=== PATIENT | male | born 1940 | race Caucasian/White ===

== ENCOUNTER 2020-02-05 17:58 | Inpatient (IN) ==
[2020-02-05 18:28] VITALS: BMI 30.4
[2020-02-05 18:29] LABS: ABG BASE EXCESS 0.1 mmol/L (-2.0-2.0); ABG HCO3 23.6 mmol/L (22-26)
[2020-02-05 18:31] LABS: ABG ALLEN TEST POS
[2020-02-05 19:29] LABS: BASOPHILS % (AUTO) 0 % (0.2-1.0); HEMATOCRIT 36.6 % (42.0-54.0); HEMOGLOBIN 12.3 g/dL (13.5-18.0); LYMPHOCYTES # (AUTO) 0.4 X10^3/uL (1.3-2.9); LYMPHOCYTES % (AUTO) 6.6 % (21.0-51.0); MEAN CORPUSCULAR HEMOGLOBIN 30.6 pg (27.0-34.0); MEAN CORPUSCULAR HGB CONC 33.5 g/dL (33.0-35.0); MEAN CORPUSCULAR VOLUME 91.4 fL (80.0-100.0); MEAN PLATELET VOLUME 8.3 fL (7.4-11.0); MONOCYTES # (AUTO) 0.2 x10^3/uL (0.3-0.8); MONOCYTES % (AUTO) 3.7 % (0.0-13.0); NEUTROPHILS # (AUTO) 5.6 x10^3/uL (2.2-4.8); NEUTROPHILS % (AUTO) 89.7 % (42.0-75.0); PLATELET COUNT 150 X10^3/uL (150.0-450.0); RED BLOOD COUNT 4.01 X10^6/uL (4.7-6.0); RED CELL DISTRIBUTION WIDTH 13.8 % (11.6-16.5); WHITE BLOOD COUNT 6.3 X10^3/uL (3.6-10.0)
[2020-02-05 19:38] LABS: ALANINE AMINOTRANSFERASE 38 Units/L (12-78); ALBUMIN 2.8 g/dL (3.4-5.0); ALKALINE PHOSPHATASE 54 Units/L (46-116); ASPARTATE AMINO TRANSFERASE 48 Units/L (15-37); BLOOD UREA NITROGEN 23 mg/dL (7-18); CALCIUM 8.4 mg/dL (8.5-10.1); CARBON DIOXIDE 24.7 mmol/L (21-32); CHLORIDE 103 mmol/L (98-107); COR CA(FOR HYPOALB) 9.4 mg/dL (8.5-10.1); COR NA(FOR HYPERGLY) 138 mmol/L (136-145); CREATININE 1.36 mg/dL (0.70-1.30); SODIUM 137 mmol/L (136-145); TOTAL PROTEIN 6.6 g/dL (6.4-8.2); eGFR NON BLACK RACES 53 (>60)
--- NOTE | 2020-02-05 19:56 | RAD ---
HISTORYCOVID, SOB, WEAKNESSSTUDYCHEST, 1 VIEWCOMPARISONNoneFINDINGSThe trachea is midline. The cardiac silhouette is unremarkable. Diffuse airspace disease is demonstrated bilaterally with areas of consolidation noted within the right upper and lower lobes and left perihilar region. The aortic knob is partially calcified.IMPRESSIONExtensive bilateral airspace disease as discussed above.Electronically signed by: JONA GRIGGS (Feb 05, 2020 19:55:32)
--- NOTE | 2020-02-05 20:37 | DR.DIZZY ---
HPI Time seen Time Seen by Provider: 02/05/20 18:56 PCP Primary Care Physician: GROVER Complaint Chief Complaint:: PT TESTED POSITIVE FOR COVID- 19 ON Friday01/31/20, PT WITH WEAKNESS AND DECLINE IN AMBULATING. SHORT OF BREATHE. OXYGEN SAT 72%. PT TOOK TO TRAUMA ROOM, ASSISTED PT TO BED. CALLED FOR RESPIRATORY TO COME GET ABG ON ROOM AIR. Self Treatment fo Chief Complaint: WENT TO PRIMARY CARE DOCTOR ON FRIDAY, WITH NO IMPROVEMENT. COVID-19 Coronavirus risk:travel/contact w/high risk person: Yes Has patient experienced Coronavirus symptoms: Yes Coronavirus symptoms experienced: Fever, Coughing and Shortness of Breath Source History Provided: Patient and Family Member Mode of Arrival Mode of Arrival: Wheelchair Timing Onset of Chief Complaint: 01/31/20 Context Stroke Symptoms: None PMH PMH Past Medical History: Yes Past Medical History: Hypertension Past Surgical History: No Family History History of Family Medical Conditions: No Social History Does any household member use tobacco: No Alcohol Use: None Do you use any recreational Drugs:: No Lives With: Alone and Family Lives Where: Home Travel Risk Coronavirus risk:travel/contact w/high risk person: Yes Has patient experienced Coronavirus symptoms: Yes Coronavirus symptoms experienced: Fever, Coughing and Shortness of Breath Infectious screening In the last 2 months have you had wt loss of >10#?: NO Have you had fever, night sweats or hemotysis?: Yes Have you traveled outside the country in the last 6 months?: No Isolation: Standard ROS Review of Systems Constitutional: Fever and Fatigue Eyes: No Symptoms Reported ENTM: No Symptoms Reported Respiratoy: Dry Cough and Short of Breath Cardiovascular: No Symptoms Reported Gastrointestinal/Abdominal: No Symptoms Reported Neurological: No Symptoms Reported Musculoskeletal: No Symptoms Reported Integumentary: No Symptoms Reported Hematologic/Lymphatic: No Symptoms Reported Endocrine: No Symptoms Reported Psychiatric: No Symptoms Reported PE Vital Signs Vitals: Temperature 99 F Pulse Rate 83 Respiratory Rate 20 Blood Pressure 195/79 O2 Sat by Pulse Oximetry 72 General Limitations: No Limitations General Appearance: Anxious and In Distress Head Head Exam: Normal Inspection, Atraumatic and Normocephalic Eyes Eye exam: Normal Appearance, PERRL and EOMI ENT ENT Exam: Normal Exam and Mucous Membranes Moist Respiratory Respiratory Exam: Bilateral: Rhonchi Cardiovascular Cardiovascular Exam: +S1 and +S2 Abdominal Exam Abdominal Exam: Normal Bowel Sounds and Soft Extremeties Extremities Exam: Normal Inspection Neurologic Neurological Exam: Alert and Oriented X3 Psychiatric Psychiatric Exam: Anxious Skin Skin Exam: Warm MDM Differential Diagnosis Differential Diagnosis Comment: covid 19 pos,hypoxia,shiortness of breath abnormal lung sounds COURSE Consultation Consultation Comments: will admit spoke with Dr Preston COONEY Labs Reviewed Laboratory Results Reviewed?: Yes Result Diagrams: 02/05/20 19:10 02/05/20 19:10 Laboratory: WBC 6.3 X10^3/uL (3.6-10.0) 02/05/20 19:10 RBC 4.01 X10^6/uL (4.7-6.0) L 02/05/20 19:10 Hgb 12.3 g/dL (13.5-18.0) L 02/05/20 19:10 Hct 36.6 % (42.0-54.0) L 02/05/20 19:10 MCV 91.4 fL (80.0-100.0) 02/05/20 19:10 MCH 30.6 pg (27.0-34.0) 02/05/20 19:10 MCHC 33.5 g/dL (33.0-35.0) 02/05/20 19:10 RDW 13.8 % (11.6-16.5) 02/05/20 19:10 Plt Count 150 X10^3/uL (150.0-450.0) 02/05/20 19:10 MPV 8.3 fL (7.4-11.0) 02/05/20 19:10 Neut % (Auto) 89.7 % (42.0-75.0) H 02/05/20 19:10 Lymph % (Auto) 6.6 % (21.0-51.0) L 02/05/20 19:10 Vill[place]ba % (Auto) 3.7 % (0.0-13.0) 02/05/20 19:10 Eos % (Auto) 0.0 % (0.9-2.9) L 02/05/20 19:10 Baso % (Auto) 0 % (0.2-1.0) L 02/05/20 19:10 Neut # (Auto) 5.6 x10^3/uL (2.2-4.8) H 02/05/20 19:10 Lymph # (Auto) 0.4 X10^3/uL (1.3-2.9) L 02/05/20 19:10 [place]ba # (Auto) 0.2 x10^3/uL (0.3-0.8) L 02/05/20 19:10 Eos # (Auto) 0.0 x10^3/uL (0.0-0.2) 02/05/20 19:10 Baso # (Auto) 0.0 X10^3/uL (0.0-0.1) 02/05/20 19:10 Absolute Nucleated RBC 0.0 /100WBC 02/05/20 19:10 Sample Site Rr 02/05/20 18:24 ABG pH 7.450 (7.35-7.45) 02/05/20 18:24 ABG pCO2 34.0 mmHg (35.0-45.0) L 02/05/20 18:24 ABG pO2 40.0 mmHg (80.0-100.0) L* 02/05/20 18:24 ABG HCO3 23.6 mmol/L (22-26) 02/05/20 18:24 ABG O2 Saturation 78.0 % (90-100) L* 02/05/20 18:24 ABG Base Excess 0.1 mmol/L (-2.0-2.0) 02/05/20 18:24 Ezra Test Pos 02/05/20 18:24 A-a Gradient 67.0 mmHg 02/05/20 18:24 FiO2 21.0 02/05/20 18:24 Blood Gas Comments Oriana well gmb 02/05/20 18:24 Sodium 137 mmol/L (136-145) 02/05/20 19:10 Corrected Sodium 138 mmol/L (136-145) 02/05/20 19:10 Potassium 4.1 mmol/L (3.5-5.1) 02/05/20 19:10 Chloride 103 mmol/L (98-107) 02/05/20 19:10 Carbon Dioxide 24.7 mmol/L (21-32) 02/05/20 19:10 BUN 23 mg/dL (7-18) H 02/05/20 19:10 Creatinine 1.36 mg/dL (0.70-1.30) H 02/05/20 19:10 Est GFR (MDRD) Af Amer > 60 (>60) 02/05/20 19:10 Est GFR (MDRD) Non-Af 53 (>60) L 02/05/20 19:10 Glucose 134 mg/dL (65-99) H 02/05/20 19:10 Calcium 8.4 mg/dL (8.5-10.1) L 02/05/20 19:10 Corrected Calcium 9.4 mg/dL (8.5-10.1) 02/05/20 19:10 Ferritin 1439 ng/mL (26-388) H 02/05/20 19:10 Total Bilirubin 0.50 mg/dL (0.2-1.0) 02/05/20 19:10 AST 48 Units/L (15-37) H 02/05/20 19:10 ALT 38 Units/L (12-78) 02/05/20 19:10 Alkaline Phosphatase 54 Units/L (46-116) 02/05/20 19:10 C-Reactive Protein 113.90 mg/L (0-3.0) H 02/05/20 19:10 Total Protein 6.6 g/dL (6.4-8.2) 02/05/20 19:10 Albumin 2.8 g/dL (3.4-5.0) L 02/05/20 19:10 Globulin 3.8 g/dL (2.5-4.5) 02/05/20 19:10 Albumin/Globulin Ratio 0.7 Ratio (1.1-2.1) L 02/05/20 19:10 Other Results Comments: CXR bilateral changes suggestive of viral pneumonia Opioid Opioid Risk Tool Age (Estuardo box if 16-45): No Total: 0 Total Score Risk Category: Low Risk Copyright: Mansoor SCHMIDT predicting aberrant behaviors Instructions Forms: Precautions for COVID19 Patient Portal Social Distancing
[2020-02-05] MEDS ORDERED: REMDESIVIR (INVESTIGATIONAL DRUG GS-5734) 200 MG in NS 250 ML IV 250 ML IV SCH (20:52)
[2020-02-05] MEDS ORDERED: VENTOLIN or PROAIR HFA IN SCH (21:00)
[2020-02-05] MEDS ORDERED: REMDESIVIR (INVESTIGATIONAL DRUG GS-5734) IV ONE (23:16)
[2020-02-05] MEDS ORDERED: NS 250 ML IV 250 ML IV ONE (23:18)
[2020-02-05] MEDS: NS 1000 ML 1,000 ML IV SCH (23:30)
[2020-02-05] MEDS: SOLU-Medrol 40 MG VIAL IVP SCH (23:30)
[2020-02-05] MEDS: APRESOLINE TAB 25 MG PO SCH (23:30)
[2020-02-05] MEDS: LOPRESSOR TAB 50 MG PO SCH (23:30)
[2020-02-06] MEDS: VENTOLIN or PROAIR HFA IN SCH ×4 (00:15→21:00)
--- NOTE | 2020-02-06 00:33 | DR.DIZZY ---
HPI Time seen Time Seen by Provider: 02/05/20 18:56 PCP Primary Care Physician: GROVER Complaint Chief Complaint Doctor Comments: According to p he was dx with COVID 19 approx. 5 days ago.was started on Zithromax, decadron and hydroxychloroquine.pt indicates that his shortness of breath has worsened with some coughing .Pt was brought to Er for evaluation Chief Complaint:: PT TESTED POSITIVE FOR COVID- 19 ON Friday01/31/20, PT WITH WEAKNESS AND DECLINE IN AMBULATING. SHORT OF BREATHE. OXYGEN SAT 72%. PT TOOK TO TRAUMA ROOM, ASSISTED PT TO BED. CALLED FOR RESPIRATORY TO COME GET ABG ON ROOM AIR. Self Treatment fo Chief Complaint: WENT TO PRIMARY CARE DOCTOR ON FRIDAY, WITH NO IMPROVEMENT. COVID-19 Coronavirus risk:travel/contact w/high risk person: Yes Has patient experienced Coronavirus symptoms: Yes Coronavirus symptoms experienced: Fever, Coughing and Shortness of Breath Nurses Notes Reviewed Nurses Notes Review: Yes Source History Provided: Patient and Family Member Mode of Arrival Mode of Arrival: Wheelchair Timing Onset of Chief Complaint: 01/31/20 Context Stroke Symptoms: None PMH PMH Past Medical History: Yes Past Medical History: Hypertension Past Surgical History: No Family History History of Family Medical Conditions: No Social History Does any household member use tobacco: No Alcohol Use: None Do you use any recreational Drugs:: No Lives With: Alone and Family Lives Where: Home Travel Risk Coronavirus risk:travel/contact w/high risk person: Yes Has patient experienced Coronavirus symptoms: Yes Coronavirus symptoms experienced: Fever, Coughing and Shortness of Breath Infectious screening In the last 2 months have you had wt loss of >10#?: NO Have you had fever, night sweats or hemotysis?: Yes Have you traveled outside the country in the last 6 months?: No Isolation: Standard ROS Review of Systems Constitutional: Fever Eyes: No Symptoms Reported ENTM: No Symptoms Reported Respiratoy: Dry Cough and Short of Breath Cardiovascular: No Symptoms Reported Gastrointestinal/Abdominal: No Symptoms Reported Genitourinary: No Symptoms Reported Neurological: Weakness Musculoskeletal: No Symptoms Reported Integumentary: No Symptoms Reported Hematologic/Lymphatic: No Symptoms Reported PE Vital Signs Vitals: Temperature 99 F Pulse Rate [Left] 80 Pulse Rate 67 Respiratory Rate 20 Blood Pressure [Left Arm] 168/81 Blood Pressure 178/85 O2 Sat by Pulse Oximetry 92 General Limitations: No Limitations General Appearance: Anxious Head Head Exam: Normal Inspection, Atraumatic and Normocephalic Eyes Eye exam: Normal Appearance, PERRL and EOMI ENT ENT Exam: Mucous Membranes Moist Neck Neck Exam: Normal Inspection and Full ROM Respiratory Respiratory Exam: Bilateral: Rales Cardiovascular Cardiovascular Exam: Tachycardia Abdominal Exam Abdominal Exam: Normal Inspection, Normal Bowel Sounds and Soft Extremeties Extremities Exam: Normal Inspection and Full ROM Neurologic Neurological Exam: Alert Skin Skin Exam: Warm MDM Additional Information Obtained Additional Findings: shortness of breath,abdnormal lung sounds,covid 19 pos ,hypoxia COURSE Treatment Treatment: o2 improved with 5l of oxygen via NC LABS,CXR Consultation Consultation Comments: spoke with Dr. Johnston agree to admit patient [facility] Labs Reviewed Laboratory Results Reviewed?: Yes Result Diagrams: 02/05/20 19:10 02/05/20 19:10 Laboratory: WBC 6.3 X10^3/uL (3.6-10.0) 02/05/20 19:10 RBC 4.01 X10^6/uL (4.7-6.0) L 02/05/20 19:10 Hgb 12.3 g/dL (13.5-18.0) L 02/05/20 19:10 Hct 36.6 % (42.0-54.0) L 02/05/20 19:10 MCV 91.4 fL (80.0-100.0) 02/05/20 19:10 MCH 30.6 pg (27.0-34.0) 02/05/20 19:10 MCHC 33.5 g/dL (33.0-35.0) 02/05/20 19:10 RDW 13.8 % (11.6-16.5) 02/05/20 19:10 Plt Count 150 X10^3/uL (150.0-450.0) 02/05/20 19:10 MPV 8.3 fL (7.4-11.0) 02/05/20 19:10 Neut % (Auto) 89.7 % (42.0-75.0) H 02/05/20 19:10 Lymph % (Auto) 6.6 % (21.0-51.0) L 02/05/20 19:10 [place] % (Auto) 3.7 % (0.0-13.0) 02/05/20 19:10 Eos % (Auto) 0.0 % (0.9-2.9) L 02/05/20 19:10 Baso % (Auto) 0 % (0.2-1.0) L 02/05/20 19:10 Neut # (Auto) 5.6 x10^3/uL (2.2-4.8) H 02/05/20 19:10 Lymph # (Auto) 0.4 X10^3/uL (1.3-2.9) L 02/05/20 19:10 [place] # (Auto) 0.2 x10^3/uL (0.3-0.8) L 02/05/20 19:10 Eos # (Auto) 0.0 x10^3/uL (0.0-0.2) 02/05/20 19:10 Baso # (Auto) 0.0 X10^3/uL (0.0-0.1) 02/05/20 19:10 Absolute Nucleated RBC 0.0 /100WBC 02/05/20 19:10 Sample Site Rr 02/05/20 18:24 ABG pH 7.450 (7.35-7.45) 02/05/20 18:24 ABG pCO2 34.0 mmHg (35.0-45.0) L 02/05/20 18:24 ABG pO2 40.0 mmHg (80.0-100.0) L* 02/05/20 18:24 ABG HCO3 23.6 mmol/L (22-26) 02/05/20 18:24 ABG O2 Saturation 78.0 % (90-100) L* 02/05/20 18:24 ABG Base Excess 0.1 mmol/L (-2.0-2.0) 02/05/20 18:24 Ezra Test Pos 02/05/20 18:24 A-a Gradient 67.0 mmHg 02/05/20 18:24 FiO2 21.0 02/05/20 18:24 Blood Gas Comments Oriana well gmb 02/05/20 18:24 Sodium 137 mmol/L (136-145) 02/05/20 19:10 Corrected Sodium 138 mmol/L (136-145) 02/05/20 19:10 Potassium 4.1 mmol/L (3.5-5.1) 02/05/20 19:10 Chloride 103 mmol/L (98-107) 02/05/20 19:10 Carbon Dioxide 24.7 mmol/L (21-32) 02/05/20 19:10 BUN 23 mg/dL (7-18) H 02/05/20 19:10 Creatinine 1.36 mg/dL (0.70-1.30) H 02/05/20 19:10 Est GFR (MDRD) Af Amer > 60 (>60) 02/05/20 19:10 Est GFR (MDRD) Non-Af 53 (>60) L 02/05/20 19:10 Glucose 134 mg/dL (65-99) H 02/05/20 19:10 Calcium 8.4 mg/dL (8.5-10.1) L 02/05/20 19:10 Corrected Calcium 9.4 mg/dL (8.5-10.1) 02/05/20 19:10 Ferritin 1439 ng/mL (26-388) H 02/05/20 19:10 Total Bilirubin 0.50 mg/dL (0.2-1.0) 02/05/20 19:10 AST 48 Units/L (15-37) H 02/05/20 19:10 ALT 38 Units/L (12-78) 02/05/20 19:10 Alkaline Phosphatase 54 Units/L (46-116) 02/05/20 19:10 C-Reactive Protein 113.90 mg/L (0-3.0) H 02/05/20 19:10 Total Protein 6.6 g/dL (6.4-8.2) 02/05/20 19:10 Albumin 2.8 g/dL (3.4-5.0) L 02/05/20 19:10 Globulin 3.8 g/dL (2.5-4.5) 02/05/20 19:10 Albumin/Globulin Ratio 0.7 Ratio (1.1-2.1) L 02/05/20 19:10 Other Results Comments: cxr shows bilateral infiltrates for possible covid pneumonia Opioid Opioid Risk Tool Age (Etsuardo box if 16-45): No Total: 0 Total Score Risk Category: Low Risk Copyright: Mansoor SCHMIDT predicting aberrant behaviors Diagnosis Discharge Problem: COVID-19, Pneumonia due to COVID-19 virus, Hypoxia, Abnormal renal function, Shortness of breath Instructions Forms: Precautions for COVID19 Patient Portal Social Distancing
[2020-02-06] MEDS: SOLU-Medrol 40 MG VIAL IVP SCH (06:15)
[2020-02-06 06:17] LABS: BASOPHILS % (AUTO) 0 % (0.2-1.0); HEMATOCRIT 36.1 % (42.0-54.0); HEMOGLOBIN 12.5 g/dL (13.5-18.0); LYMPHOCYTES # (AUTO) 0.5 X10^3/uL (1.3-2.9); LYMPHOCYTES % (AUTO) 8.6 % (21.0-51.0); MEAN CORPUSCULAR HEMOGLOBIN 31.2 pg (27.0-34.0); MEAN CORPUSCULAR HGB CONC 34.6 g/dL (33.0-35.0); MEAN PLATELET VOLUME 8.9 fL (7.4-11.0); MONOCYTES # (AUTO) 0.2 x10^3/uL (0.3-0.8); MONOCYTES % (AUTO) 2.6 % (0.0-13.0); NEUTROPHILS # (AUTO) 5.5 x10^3/uL (2.2-4.8); NEUTROPHILS % (AUTO) 88.8 % (42.0-75.0); PLATELET COUNT 162 X10^3/uL (150.0-450.0); RED BLOOD COUNT 4.01 X10^6/uL (4.7-6.0); RED CELL DISTRIBUTION WIDTH 13.4 % (11.6-16.5); WHITE BLOOD COUNT 6.2 X10^3/uL (3.6-10.0)
[2020-02-06] MEDS: APRESOLINE TAB 25 MG PO SCH ×3 (06:25→21:00)
[2020-02-06 06:43] LABS: ALANINE AMINOTRANSFERASE 38 Units/L (12-78); ALBUMIN 2.6 g/dL (3.4-5.0); ALKALINE PHOSPHATASE 54 Units/L (46-116); ASPARTATE AMINO TRANSFERASE 47 Units/L (15-37); BLOOD UREA NITROGEN 20 mg/dL (7-18); CARBON DIOXIDE 23.3 mmol/L (21-32); CHLORIDE 103 mmol/L (98-107); COR CA(FOR HYPOALB) 9.1 mg/dL (8.5-10.1); COR NA(FOR HYPERGLY) 138 mmol/L (136-145); CREATININE 1.17 mg/dL (0.70-1.30); SODIUM 137 mmol/L (136-145); TOTAL PROTEIN 6.5 g/dL (6.4-8.2); eGFR NON BLACK RACES > 60 (>60)
[2020-02-06] MEDS ORDERED: ZITHROMAX TAB 250 MG PO SCH (09:00)
[2020-02-06] MEDS: COZAAR PO SCH (09:24)
[2020-02-06] MEDS: LOPRESSOR TAB 50 MG PO SCH ×2 (09:25→21:00)
[2020-02-06] MEDS: SYNTHROID 125 mcg TAB PO SCH (09:25)
[2020-02-06] MEDS: NS 1000 ML 1,000 ML IV SCH (09:46)
[2020-02-06 11:08] LABS: ABG BASE EXCESS -0.7 mmol/L (-2.0-2.0); ABG HCO3 23.2 mmol/L (22-26)
[2020-02-06 11:13] LABS: ABG ALLEN TEST POS
[2020-02-06] MEDS: ZOSYN VIAL 3.375 GRAMS 3.375 G in NS 100 ML IV + SPIKE MINIBAG* 100 ML IV SCH ×3 (11:52→21:30)
--- NOTE | 2020-02-06 13:01 | DR.H&P ---
H&P - History & Physical for Day of: H&P Date: 02/05/20 - Chief Complaint Chief Complaint: SOB, WEAKNESS, COVID 19+ - History of Present Illness History of Present Illness: PT IS 80 WM ER ADMISSION AFTER REPORTING PT WAS TESTED POSITIVE FOR COVID- 19 ON Friday01/31/20, PT WITH WEAKNESS AND DECLINE IN AMBULATING. SHORT OF BREATHE. OXYGEN SAT 72%. PT HAS PMH OF HTN AND HYPOTHYROID, DENIES ANY CAD OR DM. PT WAS HYPOXIC ON ADMISSION, ICU ISOLATION FOR TREATMENT OF ACUTE ILLNESS - Past Medical History Past Medical History: Hypertension, Hypothyroidism - Past Surgical History Surgical History: Abdominal Surgery - Social History Does patient currently use any type of tobacco product: No Have you used tobacco products in the last 12 months: No Type of Tobacco Use: None Does any household member use tobacco: No Alcohol Use: None Drug Use: Prescription Drugs - Medications Home Medications: No Known Drug Allergies Allergy (Verified 02/05/20 21:40) CONTINUE taking the following medications albuterol sulfate [Ventolin HFA] INHALATION 02/05/20 [History] azithromycin 250 mg PO DAILY 02/05/20 [History] cefdinir 300 mg PO BID 02/05/20 [History] dexamethasone 4 mg PO DAILY 02/05/20 [History] hydralazine 25 mg PO TID 02/05/20 [History] hydroxychloroquine 200 mg PO BID 02/05/20 [History] levothyroxine 125 mcg PO DAILY 02/05/20 [History] losartan 50 mg PO BID 02/05/20 [History] metoprolol tartrate 25 mg PO BID 02/05/20 [History] - Review of Systems Constitutional: Weakness, Malaise Eyes: No Symptoms Reported ENT: No Symptoms Reported Respiratory: Cough, Shortness of Breath Cardiovascular: No Symptoms Reported Gastrointestinal: Diarrhea Genitourinary: No Symptoms Reported Musculoskeletal: No Symptoms Reported Skin: No Symptoms Reported Neurological: Weakness - Physical Exam Vital Signs: Temperature 98.4 F Pulse Rate [Left] 85 Pulse Rate 64 Respiratory Rate 24 Blood Pressure [Left Arm] 176/84 Blood Pressure 165/80 O2 Sat by Pulse Oximetry 92 Oriented: Normal Eyes: Normal, Diplopia Nose: Normal Throat: Dry Respiratory: Diminished Throughout Cardiovascular: Tachycardia. negative: Edema : Normal Auscultation: Bowel Sounds: Normal Palpation: Normal Tenderness: Normal Skin: Decreased Turgur Musculoskeletal: Normal Psychiatric: Anxiety Mood Description: Anxious Affect: Anxious Speech Pattern: Clear, Appropriate - Assessment/Plan (1) Pneumonia due to COVID-19 virus Status: Acute Plan: ADMIT ICU, ISOLATION. SUPPLEMENTAL O2, RESP THERAPY, ABG ON ADMISSION. CXR ON ADMISSION, CE AND EKG. IV ATBX, REMDESIVIR, VERIFY HOME MEDICATION. OBTAIN COPY OF COVID RESULTS (2) Hypertension Status: Acute (3) Hypoxia Status: Acute - Allergies Allergies/Adverse Reactions: Allergies Allergy/AdvReac Type Severity Reaction Status Date / Time No Known Drug Allergies Allergy Verified 02/05/20 21:40
[2020-02-06] MEDS ORDERED: LASIX IVP ONE (13:02)
[2020-02-06] MEDS: LASIX IVP SCH ×2 (13:13→17:25)
[2020-02-06] MEDS: ZITHROMAX INJ 500 MG VIAL 500 MG in NS 250 ML IV 250 ML IV SCH (13:33)
[2020-02-06] MEDS ORDERED: HALDOL INJ ONE (13:33)
[2020-02-06] MEDS: LOVENOX INJ 40 MG SYR SC SCH (13:33)
[2020-02-06] MEDS: SOLU-Medrol 125 MG VIAL IVP SCH ×2 (13:34→21:00)
[2020-02-06] MEDS: HALDOL INJ IVP PRN ×2 (13:44→21:31)
[2020-02-06] MEDS ORDERED: SOLU-Medrol 40 MG VIAL IVP SCH (14:00)
[2020-02-06 14:03] LABS: ABG ALLEN TEST POS; ABG BASE EXCESS -1.1 mmol/L (-2.0-2.0); ABG HCO3 22.2 mmol/L (22-26)
--- NOTE | 2020-02-06 15:33 | RAD ---
History: COVID, respiratory failure, pneumoniaStudy: Single view chestComparison: YesterdayFINDINGS/IMPRESSION:There is mildly improved aeration of the right lung compared to yesterday's exam. Persistent multifocal infiltrates bilaterally, now worse on the left. No pneumothorax. Heart size is normal.Electronically signed by: MACIE SWANSON (Feb 06, 2020 15:32:22)
[2020-02-06 16:31] LABS: ABG ALLEN TEST POS; ABG BASE EXCESS 0.3 mmol/L (-2.0-2.0); ABG HCO3 23.1 mmol/L (22-26)
[2020-02-06] MEDS ORDERED: NS 250 ML IV 250 ML IV ONE (20:41)
[2020-02-06] MEDS ORDERED: REMDESIVIR (INVESTIGATIONAL DRUG GS-5734) IV ONE (20:41)
[2020-02-06] MEDS ORDERED: NS 500 ML IV 500 ML IV ONE (20:47)
[2020-02-06] MEDS: PLAQUENIL PO SCH (21:00)
[2020-02-06] MEDS: REMDESIVIR (INVESTIGATIONAL DRUG GS-5734) 100 MG in NS 250 ML IV 250 ML IV SCH (23:01)
[2020-02-07] MEDS: SOLU-Medrol 125 MG VIAL IVP SCH ×4 (02:50→19:44)
[2020-02-07] MEDS ORDERED: NS 100 ML IV + SPIKE MINIBAG* 100 ML IV ONE (04:51)
[2020-02-07 05:21] LABS: BASOPHILS % (AUTO) 0.1 % (0.2-1.0); HEMATOCRIT 37.2 % (42.0-54.0); HEMOGLOBIN 12.6 g/dL (13.5-18.0); LYMPHOCYTES # (AUTO) 0.5 X10^3/uL (1.3-2.9); LYMPHOCYTES % (AUTO) 5.3 % (21.0-51.0); MEAN CORPUSCULAR HEMOGLOBIN 30.7 pg (27.0-34.0); MEAN CORPUSCULAR HGB CONC 33.8 g/dL (33.0-35.0); MEAN CORPUSCULAR VOLUME 90.8 fL (80.0-100.0); MEAN PLATELET VOLUME 9.1 fL (7.4-11.0); MONOCYTES # (AUTO) 0.3 x10^3/uL (0.3-0.8); MONOCYTES % (AUTO) 2.8 % (0.0-13.0); NEUTROPHILS # (AUTO) 8.3 x10^3/uL (2.2-4.8); NEUTROPHILS % (AUTO) 91.8 % (42.0-75.0); PLATELET COUNT 214 X10^3/uL (150.0-450.0); RED CELL DISTRIBUTION WIDTH 13.6 % (11.6-16.5)
[2020-02-07] MEDS ORDERED: ZOSYN VIAL 3.375 GRAMS IV ONE ×2 (05:31→19:39)
[2020-02-07 05:36] LABS: ALBUMIN 2.4 g/dL (3.4-5.0); CALCIUM 7.9 mg/dL (8.5-10.1); CARBON DIOXIDE 25.7 mmol/L (21-32); COR CA(FOR HYPOALB) 9.2 mg/dL (8.5-10.1); CREATININE 1.57 mg/dL (0.70-1.30); TOTAL PROTEIN 6.2 g/dL (6.4-8.2)
[2020-02-07 05:51] LABS: BAND NEUTROPHILS % 1 % (0-10); PLATELET MORPHOLOGY COMMENT NORMAL (NORMAL)
[2020-02-07] MEDS: APRESOLINE TAB 25 MG PO SCH ×3 (06:27→21:55)
[2020-02-07] MEDS: ZOSYN VIAL 3.375 GRAMS 3.375 G in NS 100 ML IV + SPIKE MINIBAG* 100 ML IV SCH ×3 (06:27→21:55)
[2020-02-07] MEDS: VENTOLIN or PROAIR HFA IN SCH ×3 (09:35→21:30)
[2020-02-07] MEDS: SYNTHROID 125 mcg TAB PO SCH (09:52)
[2020-02-07] MEDS: LASIX IVP SCH ×2 (09:52→17:03)
[2020-02-07] MEDS: LOPRESSOR TAB 50 MG PO SCH ×2 (09:53→21:55)
[2020-02-07] MEDS: COZAAR PO SCH (09:53)
[2020-02-07] MEDS: PLAQUENIL PO SCH ×2 (09:53→21:55)
[2020-02-07] MEDS: ZITHROMAX INJ 500 MG VIAL 500 MG in NS 250 ML IV 250 ML IV SCH (09:55)
[2020-02-07] MEDS: LOVENOX INJ 40 MG SYR SC SCH (09:56)
[2020-02-07 13:58] LABS: ABG ALLEN TEST POS; ABG BASE EXCESS 4.8 mmol/L (-2.0-2.0); ABG HCO3 28.1 mmol/L (22-26)
[2020-02-07] MEDS ORDERED: NS 100 ML IV 100 ML IV ONE (19:39)
[2020-02-08] MEDS: REMDESIVIR (INVESTIGATIONAL DRUG GS-5734) 100 MG in NS 250 ML IV 250 ML IV SCH ×2 (00:40→22:56)
[2020-02-08] MEDS: SOLU-Medrol 125 MG VIAL IVP SCH ×4 (03:00→19:36)
[2020-02-08] MEDS ORDERED: NS 250 ML IV 250 ML IV ONE (04:04)
[2020-02-08] MEDS ORDERED: ZOSYN VIAL 3.375 GRAMS IV ONE (04:40)
[2020-02-08] MEDS ORDERED: NS 100 ML IV 100 ML IV ONE (04:40)
[2020-02-08] MEDS: ZOSYN VIAL 3.375 GRAMS 3.375 G in NS 100 ML IV + SPIKE MINIBAG* 100 ML IV SCH ×3 (05:18→22:04)
[2020-02-08] MEDS: APRESOLINE TAB 25 MG PO SCH ×3 (05:20→21:35)
[2020-02-08 06:09] LABS: ALBUMIN 2.4 g/dL (3.4-5.0); CALCIUM 8.2 mg/dL (8.5-10.1); CARBON DIOXIDE 27.7 mmol/L (21-32); COR CA(FOR HYPOALB) 9.5 mg/dL (8.5-10.1); CREATININE 1.46 mg/dL (0.70-1.30); TOTAL PROTEIN 6.2 g/dL (6.4-8.2)
[2020-02-08 06:16] LABS: BASOPHILS % (AUTO) 0.1 % (0.2-1.0); HEMATOCRIT 37.4 % (42.0-54.0); HEMOGLOBIN 12.8 g/dL (13.5-18.0); LYMPHOCYTES # (AUTO) 0.3 X10^3/uL (1.3-2.9); LYMPHOCYTES % (AUTO) 3.1 % (21.0-51.0); MEAN CORPUSCULAR HEMOGLOBIN 30.5 pg (27.0-34.0); MEAN CORPUSCULAR HGB CONC 34.1 g/dL (33.0-35.0); MEAN CORPUSCULAR VOLUME 89.5 fL (80.0-100.0); MEAN PLATELET VOLUME 8.2 fL (7.4-11.0); MONOCYTES # (AUTO) 0.4 x10^3/uL (0.3-0.8); MONOCYTES % (AUTO) 4.5 % (0.0-13.0); NEUTROPHILS # (AUTO) 8.8 x10^3/uL (2.2-4.8); NEUTROPHILS % (AUTO) 92.3 % (42.0-75.0); PLATELET COUNT 244 X10^3/uL (150.0-450.0); RED BLOOD COUNT 4.18 X10^6/uL (4.7-6.0); RED CELL DISTRIBUTION WIDTH 13.7 % (11.6-16.5); WHITE BLOOD COUNT 9.5 X10^3/uL (3.6-10.0)
[2020-02-08] MEDS ORDERED: POTASSIUM CHL 40 MEQ/NS 0.45% 500 ML IV PRN (06:18)
[2020-02-08] MEDS ORDERED: MICRO K EXTEN CAP 10 MEQ PO PRN (06:18)
[2020-02-08] MEDS ORDERED: MAGNESIUM SULFATE 1 GRAM/100 mL PREMIX 1 GM/100 ML BAG IV PRN (06:18)
[2020-02-08] MEDS ORDERED: POTASSIUM CHLORIDE LIQ 20 MEQ UDC PO PRN (06:18)
[2020-02-08] MEDS ORDERED: POTASSIUM CHL 60 MEQ/NS 0.45% 500 ML IV PRN (06:18)
[2020-02-08] MEDS ORDERED: KLOR-CON PO PRN (06:18)
[2020-02-08] MEDS ORDERED: K-DUR TAB 20 MEQ PO ONE (06:24)
[2020-02-08] MEDS: K-DUR TAB 20 MEQ PO PRN (06:45)
[2020-02-08 07:30] LABS: BAND NEUTROPHILS % 2 % (0-10); PLATELET MORPHOLOGY COMMENT NORMAL (NORMAL)
[2020-02-08] MEDS: LASIX IVP SCH ×2 (09:09→17:55)
[2020-02-08] MEDS: COZAAR PO SCH (09:14)
[2020-02-08] MEDS: ZITHROMAX INJ 500 MG VIAL 500 MG in NS 250 ML IV 250 ML IV SCH (09:14)
[2020-02-08] MEDS: LOPRESSOR TAB 50 MG PO SCH ×2 (09:14→21:35)
[2020-02-08] MEDS: SYNTHROID 125 mcg TAB PO SCH (09:15)
[2020-02-08] MEDS: LOVENOX INJ 40 MG SYR SC SCH (09:19)
[2020-02-08] MEDS: PLAQUENIL PO SCH ×2 (10:20→21:35)
[2020-02-08] MEDS: VENTOLIN or PROAIR HFA IN SCH ×4 (10:20→21:36)
[2020-02-08] MEDS: NS 1/2 + KCL 20 MEQ/L 1,000 ML IV SCH (14:50)
--- NOTE | 2020-02-08 18:11 | RAD ---
CHEST, 1 VIEWHistory: COVID POS. SOBComparison: 02/06/2020Findings: Cardiac silhouette is normal in size. There is diffuse bilateral airspace disease, progressed since previous exam. There is no significant pleural effusion. No pneumothorax.Impression:Persistent and worsening multifocal pneumonia.Electronically signed by: ROBERT GONZALEZ (Feb 08, 2020 18:10:37)
[2020-02-08] MEDS ORDERED: TUSSIONEX PENNKINETIC SUSP ONE (21:02)
[2020-02-08] MEDS: TUSSIONEX PENNKINETIC SUSP PO PRN (21:06)
[2020-02-09] MEDS: SOLU-Medrol 125 MG VIAL IVP SCH ×4 (01:53→21:00)
[2020-02-09 05:02] LABS: BASOPHILS % (AUTO) 0.1 % (0.2-1.0); HEMATOCRIT 37.5 % (42.0-54.0); HEMOGLOBIN 12.4 g/dL (13.5-18.0); LYMPHOCYTES # (AUTO) 0.2 X10^3/uL (1.3-2.9); LYMPHOCYTES % (AUTO) 1.7 % (21.0-51.0); MEAN CORPUSCULAR HEMOGLOBIN 30.1 pg (27.0-34.0); MEAN CORPUSCULAR VOLUME 91.2 fL (80.0-100.0); MEAN PLATELET VOLUME 8.3 fL (7.4-11.0); MONOCYTES # (AUTO) 0.5 x10^3/uL (0.3-0.8); MONOCYTES % (AUTO) 3.7 % (0.0-13.0); NEUTROPHILS # (AUTO) 11.8 x10^3/uL (2.2-4.8); NEUTROPHILS % (AUTO) 94.5 % (42.0-75.0); PLATELET COUNT 244 X10^3/uL (150.0-450.0); RED BLOOD COUNT 4.11 X10^6/uL (4.7-6.0); RED CELL DISTRIBUTION WIDTH 13.9 % (11.6-16.5); WHITE BLOOD COUNT 12.4 X10^3/uL (3.6-10.0)
[2020-02-09 05:11] LABS: ALBUMIN 2.5 g/dL (3.4-5.0); CALCIUM 8.2 mg/dL (8.5-10.1); COR CA(FOR HYPOALB) 9.4 mg/dL (8.5-10.1); CREATININE 1.49 mg/dL (0.70-1.30)
[2020-02-09 05:34] LABS: BAND NEUTROPHILS % 2 % (0-10); PLATELET MORPHOLOGY COMMENT NORMAL (NORMAL)
[2020-02-09 05:56] LABS: ABG BASE EXCESS 6.7 mmol/L (-2.0-2.0)
[2020-02-09 05:57] LABS: ABG ALLEN TEST POS; ABG HCO3 30.4 mmol/L (22-26)
[2020-02-09] MEDS: ZOSYN VIAL 3.375 GRAMS 3.375 G in NS 100 ML IV + SPIKE MINIBAG* 100 ML IV SCH ×3 (06:22→21:30)
[2020-02-09] MEDS: APRESOLINE TAB 25 MG PO SCH ×3 (06:22→21:30)
--- NOTE | 2020-02-09 09:15 | RAD ---
HISTORYPNEUMONIA, COVID +STUDYCHEST, 1 VIEWCOMPARISONOne day priorTECHNIQUEAP view of the chestFINDINGSCardiac silhouette is mildly enlarged and stable. No significant change in diffuse bilateral airspace interstitial opacities. Suspect small left pleural effusion. No pneumothorax.IMPRESSIONNo significant change.Electronically signed by: Gabe Streeter (Feb 09, 2020 09:15:04)
[2020-02-09] MEDS: COZAAR PO SCH (10:31)
[2020-02-09] MEDS: LOPRESSOR TAB 50 MG PO SCH ×2 (10:32→21:00)
[2020-02-09] MEDS: PLAQUENIL PO SCH ×2 (10:35→21:00)
[2020-02-09] MEDS: SYNTHROID 125 mcg TAB PO SCH (10:35)
[2020-02-09] MEDS: LOVENOX INJ 40 MG SYR SC SCH (10:36)
[2020-02-09] MEDS: ZITHROMAX INJ 500 MG VIAL 500 MG in NS 250 ML IV 250 ML IV SCH (10:37)
[2020-02-09] MEDS: VENTOLIN or PROAIR HFA IN SCH ×4 (10:40→21:40)
[2020-02-09] MEDS: TUSSIONEX PENNKINETIC SUSP PO PRN (10:41)
[2020-02-09] MEDS ORDERED: LASIX ONE ×2 (10:49→18:09)
[2020-02-09] MEDS: LASIX IVP SCH ×2 (10:52→18:12)
[2020-02-09] MEDS: K-DUR TAB 20 MEQ PO PRN (11:37)
[2020-02-09] MEDS: NS 1/2 + KCL 20 MEQ/L 1,000 ML IV SCH (16:16)
[2020-02-09] MEDS: REMDESIVIR (INVESTIGATIONAL DRUG GS-5734) 100 MG in NS 250 ML IV 250 ML IV SCH (23:38)
[2020-02-10] MEDS: SOLU-Medrol 125 MG VIAL IVP SCH ×3 (03:00→22:36)
[2020-02-10 04:03] LABS: ABG BASE EXCESS 6.2 mmol/L (-2.0-2.0); ABG HCO3 29.5 mmol/L (22-26)
[2020-02-10 04:04] LABS: ABG ALLEN TEST POS
[2020-02-10] MEDS ORDERED: NS 100 ML IV + SPIKE MINIBAG* 100 ML IV ONE (05:26)
[2020-02-10 06:03] LABS: ALANINE AMINOTRANSFERASE 31 Units/L (12-78); ALBUMIN 2.4 g/dL (3.4-5.0); ALKALINE PHOSPHATASE 91 Units/L (46-116); ASPARTATE AMINO TRANSFERASE 27 Units/L (15-37); BLOOD UREA NITROGEN 38 mg/dL (7-18); CALCIUM 7.9 mg/dL (8.5-10.1); CARBON DIOXIDE 26.3 mmol/L (21-32); CHLORIDE 113 mmol/L (98-107); COR CA(FOR HYPOALB) 9.2 mg/dL (8.5-10.1); CREATININE 1.34 mg/dL (0.70-1.30); TOTAL PROTEIN 5.8 g/dL (6.4-8.2); eGFR NON BLACK RACES 54 (>60)
[2020-02-10 06:04] LABS: COR NA(FOR HYPERGLY) 150 mmol/L (136-145); SODIUM 149 mmol/L (136-145)
[2020-02-10 06:07] LABS: BASOPHILS % (AUTO) 0 % (0.2-1.0); HEMATOCRIT 37.4 % (42.0-54.0); HEMOGLOBIN 12.5 g/dL (13.5-18.0); LYMPHOCYTES # (AUTO) 0.2 X10^3/uL (1.3-2.9); LYMPHOCYTES % (AUTO) 1.3 % (21.0-51.0); MEAN CORPUSCULAR HEMOGLOBIN 30.2 pg (27.0-34.0); MEAN CORPUSCULAR HGB CONC 33.5 g/dL (33.0-35.0); MEAN CORPUSCULAR VOLUME 89.9 fL (80.0-100.0); MEAN PLATELET VOLUME 7.8 fL (7.4-11.0); MONOCYTES # (AUTO) 0.5 x10^3/uL (0.3-0.8); MONOCYTES % (AUTO) 3.2 % (0.0-13.0); NEUTROPHILS # (AUTO) 15.8 x10^3/uL (2.2-4.8); NEUTROPHILS % (AUTO) 95.5 % (42.0-75.0); PLATELET COUNT 181 X10^3/uL (150.0-450.0); RED BLOOD COUNT 4.15 X10^6/uL (4.7-6.0); RED CELL DISTRIBUTION WIDTH 14.1 % (11.6-16.5); WHITE BLOOD COUNT 16.5 X10^3/uL (3.6-10.0)
[2020-02-10] MEDS: APRESOLINE TAB 25 MG PO SCH ×4 (06:15→22:36)
[2020-02-10] MEDS: ZOSYN VIAL 3.375 GRAMS 3.375 G in NS 100 ML IV + SPIKE MINIBAG* 100 ML IV SCH ×3 (06:17→22:36)
[2020-02-10] MEDS: HALDOL INJ IVP PRN ×2 (06:20→22:37)
[2020-02-10 07:36] LABS: BAND NEUTROPHILS % 2 % (0-10); PLATELET MORPHOLOGY COMMENT NORMAL (NORMAL)
[2020-02-10] MEDS ORDERED: LASIX ONE ×2 (07:52→09:30)
[2020-02-10] MEDS: PLAQUENIL PO SCH ×3 (09:00→22:36)
[2020-02-10] MEDS: LOPRESSOR TAB 50 MG PO SCH ×3 (09:00→22:35)
[2020-02-10] MEDS: SYNTHROID 125 mcg TAB PO SCH ×2 (09:00→14:50)
[2020-02-10] MEDS: ZITHROMAX INJ 500 MG VIAL 500 MG in NS 250 ML IV 250 ML IV SCH (09:24)
[2020-02-10] MEDS: LASIX IVP SCH ×2 (09:26→17:19)
[2020-02-10] MEDS: LOVENOX INJ 40 MG SYR SC SCH (09:27)
[2020-02-10 10:34] LABS: ABG ALLEN TEST POS; ABG BASE EXCESS 5.5 mmol/L (-2.0-2.0); ABG HCO3 28.9 mmol/L (22-26)
[2020-02-10] MEDS: VENTOLIN or PROAIR HFA IN SCH ×4 (10:45→21:39)
[2020-02-10] MEDS: COZAAR PO SCH ×2 (13:08→14:49)
[2020-02-10] MEDS: NS 1/2 + KCL 20 MEQ/L 1,000 ML IV SCH (16:10)
[2020-02-11 05:14] LABS: ABG BASE EXCESS 7.1 mmol/L (-2.0-2.0)
[2020-02-11 05:17] LABS: ABG ALLEN TEST POS; ABG HCO3 30.1 mmol/L (22-26)
[2020-02-11 05:28] LABS: BASOPHILS % (AUTO) 0.1 % (0.2-1.0); HEMATOCRIT 36.9 % (42.0-54.0); HEMOGLOBIN 12.3 g/dL (13.5-18.0); LYMPHOCYTES # (AUTO) 0.2 X10^3/uL (1.3-2.9); LYMPHOCYTES % (AUTO) 1.3 % (21.0-51.0); MEAN CORPUSCULAR HEMOGLOBIN 30.5 pg (27.0-34.0); MEAN CORPUSCULAR HGB CONC 33.4 g/dL (33.0-35.0); MEAN CORPUSCULAR VOLUME 91.1 fL (80.0-100.0); MEAN PLATELET VOLUME 8.6 fL (7.4-11.0); MONOCYTES # (AUTO) 0.4 x10^3/uL (0.3-0.8); MONOCYTES % (AUTO) 2.4 % (0.0-13.0); NEUTROPHILS # (AUTO) 15.6 x10^3/uL (2.2-4.8); NEUTROPHILS % (AUTO) 96.2 % (42.0-75.0); PLATELET COUNT 123 X10^3/uL (150.0-450.0); RED BLOOD COUNT 4.05 X10^6/uL (4.7-6.0); RED CELL DISTRIBUTION WIDTH 13.9 % (11.6-16.5); WHITE BLOOD COUNT 16.2 X10^3/uL (3.6-10.0)
[2020-02-11 05:30] LABS: ALBUMIN 2.4 g/dL (3.4-5.0); CALCIUM 7.9 mg/dL (8.5-10.1); CARBON DIOXIDE 27.6 mmol/L (21-32); COR CA(FOR HYPOALB) 9.2 mg/dL (8.5-10.1); CREATININE 1.61 mg/dL (0.70-1.30); TOTAL PROTEIN 5.8 g/dL (6.4-8.2)
[2020-02-11] MEDS: APRESOLINE TAB 25 MG PO SCH ×3 (05:57→23:43)
[2020-02-11] MEDS: ZOSYN VIAL 3.375 GRAMS 3.375 G in NS 100 ML IV + SPIKE MINIBAG* 100 ML IV SCH ×3 (05:57→22:25)
[2020-02-11] MEDS: SOLU-Medrol 125 MG VIAL IVP SCH ×3 (05:57→23:25)
--- NOTE | 2020-02-11 06:10 | RAD ---
HISTORYPNEUMONIA, COVIDSTUDYCHEST, 1 VIEWCOMPARISONOne day priorTECHNIQUEAP view of the chestFINDINGSCardiac silhouette is enlarged. Stable bilateral airspace and interstitial opacities diffusely. No definite pleural effusion or pneumothorax.IMPRESSIONNo significant change.Electronically signed by: Gabe Streeter (Feb 11, 2020 06:10:00)
[2020-02-11] MEDS: K-RIDER 10 MEQ/NS 100 ML 10 MEQ/100 ML BAG IV PRN (06:13)
[2020-02-11 06:14] LABS: PLATELET MORPHOLOGY COMMENT NORMAL (NORMAL)
--- NOTE | 2020-02-11 08:33 | RAD ---
HISTORYWORSENING SOB, HYPOXIA, CHF, PNEUMONIA, COVID +STUDYCHEST, 1 [id number]/02/2020FINDINGSSomewhat focal bilateral opacity in the lungs is present compatible with pneumonia. Probably not much changed when accounting for differences in technique.No pneumothorax or significant effusion.Heart size magnified.Old healed rib fractures on the left.EKG leads are present.IMPRESSIONUnchanged pneumoniaElectronically signed by: Gabe Guzman (Feb 10, 2020 10:14:26)
[2020-02-11] MEDS: VENTOLIN or PROAIR HFA IN SCH ×4 (09:25→21:52)
[2020-02-11] MEDS: COZAAR PO SCH (10:37)
[2020-02-11] MEDS: D5W + KCL 20 MEQ/L 1,000 ML IV SCH ×2 (10:37→23:43)
[2020-02-11] MEDS: LOVENOX INJ 40 MG SYR SC SCH (10:38)
[2020-02-11] MEDS: LOPRESSOR TAB 50 MG PO SCH ×2 (10:38→23:43)
[2020-02-11] MEDS: SYNTHROID 125 mcg TAB PO SCH (10:39)
[2020-02-11] MEDS: PLAQUENIL PO SCH ×2 (10:39→23:43)
[2020-02-11] MEDS: ZITHROMAX INJ 500 MG VIAL 500 MG in NS 250 ML IV 250 ML IV SCH (10:39)
[2020-02-11] MEDS: HALDOL INJ IVP PRN (16:16)
[2020-02-11 17:13] LABS: ABG ALLEN TEST POSTIVE; ABG BASE EXCESS 3.3 mmol/L (-2.0-2.0); ABG HCO3 26.8 mmol/L (22-26)
[2020-02-11] MEDS: NS 1/2 + KCL 20 MEQ/L 1,000 ML IV SCH (18:14)
[2020-02-11] MEDS: MORPHINE SULFATE INJ 2 MG INJ IVP PRN (21:15)
[2020-02-11] MEDS ORDERED: MORPHINE SULFATE INJ 2 MG INJ ONE (21:20)
[2020-02-11] MEDS ORDERED: BACTROBAN TOPICAL OINT ONE (22:08)
[2020-02-11] MEDS ORDERED: BENADRYL CAP 50 MG PO ONE (22:18)
[2020-02-12] MEDS: MORPHINE SULFATE INJ 2 MG INJ IVP PRN ×4 (01:30→20:00)
[2020-02-12 05:05] LABS: ABG ALLEN TEST POS; ABG BASE EXCESS 6.1 mmol/L (-2.0-2.0); ABG HCO3 29.6 mmol/L (22-26)
[2020-02-12 05:43] LABS: BASOPHILS % (AUTO) 0 % (0.2-1.0); HEMATOCRIT 37.3 % (42.0-54.0); HEMOGLOBIN 12.5 g/dL (13.5-18.0); LYMPHOCYTES # (AUTO) 0.2 X10^3/uL (1.3-2.9); LYMPHOCYTES % (AUTO) 1.1 % (21.0-51.0); MEAN CORPUSCULAR HEMOGLOBIN 30.6 pg (27.0-34.0); MEAN CORPUSCULAR HGB CONC 33.6 g/dL (33.0-35.0); MEAN CORPUSCULAR VOLUME 91.2 fL (80.0-100.0); MEAN PLATELET VOLUME 9.3 fL (7.4-11.0); MONOCYTES # (AUTO) 0.4 x10^3/uL (0.3-0.8); MONOCYTES % (AUTO) 2.2 % (0.0-13.0); NEUTROPHILS # (AUTO) 17.6 x10^3/uL (2.2-4.8); NEUTROPHILS % (AUTO) 96.7 % (42.0-75.0); PLATELET COUNT 92 X10^3/uL (150.0-450.0); RED BLOOD COUNT 4.09 X10^6/uL (4.7-6.0); RED CELL DISTRIBUTION WIDTH 14.2 % (11.6-16.5); WHITE BLOOD COUNT 18.2 X10^3/uL (3.6-10.0)
[2020-02-12 05:50] LABS: ALBUMIN 2.4 g/dL (3.4-5.0); CARBON DIOXIDE 29.5 mmol/L (21-32); COR CA(FOR HYPOALB) 9.3 mg/dL (8.5-10.1); CREATININE 1.75 mg/dL (0.70-1.30); TOTAL PROTEIN 5.8 g/dL (6.4-8.2)
[2020-02-12 06:40] LABS: PLATELET MORPHOLOGY COMMENT NORMAL (NORMAL)
[2020-02-12] MEDS: SOLU-Medrol 125 MG VIAL IVP SCH ×3 (06:44→21:14)
[2020-02-12] MEDS: APRESOLINE TAB 25 MG PO SCH (06:44)
[2020-02-12] MEDS: ZOSYN VIAL 3.375 GRAMS 3.375 G in NS 100 ML IV + SPIKE MINIBAG* 100 ML IV SCH ×3 (06:44→21:15)
[2020-02-12] MEDS: D5W + KCL 20 MEQ/L 1,000 ML IV SCH ×2 (06:48→12:28)
[2020-02-12] MEDS ORDERED: NS 1/2 + KCL 20 MEQ/L 1,000 ML IV SCH (09:00)
[2020-02-12] MEDS: LOVENOX INJ 40 MG SYR SC SCH (09:16)
[2020-02-12] MEDS: ZITHROMAX INJ 500 MG VIAL 500 MG in NS 250 ML IV 250 ML IV SCH (09:17)
[2020-02-12] MEDS: VENTOLIN or PROAIR HFA IN SCH ×4 (09:40→21:20)
[2020-02-12] MEDS: COZAAR PO SCH (10:50)
[2020-02-12] MEDS: LOPRESSOR TAB 50 MG PO SCH (10:51)
[2020-02-12] MEDS: PLAQUENIL PO SCH ×2 (10:51→21:15)
[2020-02-12] MEDS: SYNTHROID 125 mcg TAB PO SCH (10:51)
--- NOTE | 2020-02-12 11:10 | PCM.PROG ---
Progress Note Progress Note for Day of Date of Exam: 02/12/20 Subjective Subjective: Patient seen at bedside, he has remained on BiPAP with 100% FiO2, sats remain in low to mid 90s. Patient has been NPO, unable to tolerate hi-flow for medication intake. Family had been updated yesterday and overnight. They have decided to change patient's code status to DNR and continue with BiPAP care for now. If needed, family will decide regarding intubation. Patient is being treated for acute hypoxic respiratory failure due to COVID-19. He completed course of Remdesivir. He received one dose of plasma so far. He is on Azithromax, Zosyn, HCQ and solumedrol. Patient was in respiratory distress and agitated last night but that improved with morphine. Patient is on Bipap during my exam and resting comfortably. Patient's BP has been elevated due to not being able to take PO meds. Labs: WBC: 18.2 Hgb 12.5 K: 3 Na: 155 Cl:117 Cr: 1.75 AB.5/// CXR: Stable with b/l airspace disease and interstitial opacities. Plan: switch to IV anti-hypertensives, continue BiPAP as per RT, continue abx, steroids. Will increase IVF to 75cc/hr. Will check with lab about giving another plasma today if we do have one in supply. Monitor respiratory status closely. Monitor AM labs. Past Medical Family Social History Past Med/Fam/Surg Hx: Changes noted (describe) Allergies: Allergies No Known Drug Allergies Allergy (Verified 02/05/20 21:40) Review of Systems ROS: Changes notes (describe) Vital Signs and I&O's Vital Signs: Temperature 97.4 F Pulse Rate [Left] 59 Pulse Rate 73 Respiratory Rate 26 Blood Pressure [Left Arm] 184/79 Blood Pressure 188/88 O2 Sat by Pulse Oximetry 95 Intake and Output: Intake & Output 02/09/20 02/10/20 02/11/20 02/12/20 23:59 23:59 23:59 23:59 Intake Total 1634 / 1634 2015 1172 / 1172 300 / 300 Output Total 2375 / 2375 2625 / 2625 1250 / 1250 250 / 250 Balance -741 / -741 -609 / -609 -78 / -78 50 / 50 Physical Exam Oriented: Unable to test Eyes: Normal and Diplopia Nose: Normal Throat: Other (On Bipap ) Respiratory: Generalized, Diminished and Rhonchi Cardiovascular: Tachycardia; negative Edema Auscultation: Bowel Sounds: Normal Tenderness: Normal Skin: Decreased Turgur Musculoskeletal: Normal Psychiatric: Anxiety Mood Description: Anxious Affect: Anxious Speech Pattern: Appropriate and Unclear Laboratory and Diagnostics Result Diagrams: 02/12/20 05:05 02/12/20 05:05 Labs: 02/09/20 23:50 Stool Stool Culture - Final 02/09/20 23:50 Stool - Final Laboratory WBC 18.2 X10^3/uL (3.6-10.0) H 02/12/20 05:05 RBC 4.09 X10^6/uL (4.7-6.0) L 02/12/20 05:05 Hgb 12.5 g/dL (13.5-18.0) L 02/12/20 05:05 Hct 37.3 % (42.0-54.0) L 02/12/20 05:05 MCV 91.2 fL (80.0-100.0) 02/12/20 05:05 MCH 30.6 pg (27.0-34.0) 02/12/20 05:05 MCHC 33.6 g/dL (33.0-35.0) 02/12/20 05:05 RDW 14.2 % (11.6-16.5) 02/12/20 05:05 Plt Count 92 X10^3/uL (150.0-450.0) L 02/12/20 05:05 Plt Count Comment Decreased (ADEQUATE) 02/12/20 05:05 MPV 9.3 fL (7.4-11.0) 02/12/20 05:05 Neut % (Auto) 96.7 % (42.0-75.0) H 02/12/20 05:05 Lymph % (Auto) 1.1 % (21.0-51.0) L 02/12/20 05:05 [place] % (Auto) 2.2 % (0.0-13.0) 02/12/20 05:05 Eos % (Auto) 0.0 % (0.9-2.9) L 02/12/20 05:05 Baso % (Auto) 0 % (0.2-1.0) L 02/12/20 05:05 Neut # (Auto) 17.6 x10^3/uL (2.2-4.8) H 02/12/20 05:05 Lymph # (Auto) 0.2 X10^3/uL (1.3-2.9) L 02/12/20 05:05 [place] # (Auto) 0.4 x10^3/uL (0.3-0.8) 02/12/20 05:05 Eos # (Auto) 0.0 x10^3/uL (0.0-0.2) 02/12/20 05:05 Baso # (Auto) 0.0 X10^3/uL (0.0-0.1) 02/12/20 05:05 Absolute Nucleated RBC 0.0 /100WBC 02/12/20 05:05 Total Counted 100 02/12/20 05:05 Neutrophils % (Manual) 97 % (39-76) H 02/12/20 05:05 Band Neutrophils % 2 % (0-10) 02/10/20 05:25 Lymphocytes % (Manual) 1 % (13-43) L 02/12/20 05:05 Monocytes % (Manual) 2 % (4-9) L 02/12/20 05:05 Plt Morphology Comment Normal (NORMAL) 02/12/20 05:05 RBC Morphology Normal (NORMAL) 02/12/20 05:05 Sample Site Lr 02/12/20 05:00 ABG pH 7.500 (7.35-7.45) H 02/12/20 05:00 ABG pCO2 38.0 mmHg (35.0-45.0) 02/12/20 05:00 ABG pO2 73.0 mmHg (80.0-100.0) L 02/12/20 05:00 ABG HCO3 29.6 mmol/L (22-26) H 02/12/20 05:00 ABG O2 Saturation 96.0 % (90-100) 02/12/20 05:00 ABG Base Excess 6.1 mmol/L (-2.0-2.0) H 02/12/20 05:00 Ezra Test Pos 02/12/20 05:00 A-a Gradient 593.0 mmHg 02/12/20 05:00 FiO2 100.0 02/12/20 05:00 Blood Gas Comments Oriana well ae 02/12/20 05:00 Sodium 155 mmol/L (136-145) H* 02/12/20 05:05 Corrected Sodium 158 mmol/L (136-145) H 02/12/20 05:05 Potassium 3.0 mmol/L (3.5-5.1) L* 02/12/20 05:05 Chloride 117 mmol/L (98-107) H* 02/12/20 05:05 Carbon Dioxide 29.5 mmol/L (21-32) 02/12/20 05:05 BUN 50 mg/dL (7-18) H 02/12/20 05:05 Creatinine 1.75 mg/dL (0.70-1.30) H 02/12/20 05:05 Est GFR (MDRD) Af Amer 48 (>60) L 02/12/20 05:05 Est GFR (MDRD) Non-Af 40 (>60) L 02/12/20 05:05 Glucose 223 mg/dL (65-99) H 02/12/20 05:05 Calcium 8.0 mg/dL (8.5-10.1) L 02/12/20 05:05 Corrected Calcium 9.3 mg/dL (8.5-10.1) 02/12/20 05:05 Magnesium 2.8 mg/dL (1.7-2.9) 02/12/20 05:05 Ferritin 1439 ng/mL (26-388) H 02/05/20 19:10 Total Bilirubin 1.00 mg/dL (0.2-1.0) 02/12/20 05:05 AST 34 Units/L (15-37) 02/12/20 05:05 ALT 30 Units/L (12-78) 02/12/20 05:05 Alkaline Phosphatase 90 Units/L (46-116) 02/12/20 05:05 C-Reactive Protein 113.90 mg/L (0-3.0) H 02/05/20 19:10 Total Protein 5.8 g/dL (6.4-8.2) L 02/12/20 05:05 Albumin 2.4 g/dL (3.4-5.0) L 02/12/20 05:05 Globulin 3.4 g/dL (2.5-4.5) 02/12/20 05:05 Albumin/Globulin Ratio 0.7 Ratio (1.1-2.1) L 02/12/20 05:05 Stool Description 30 g. liquid/brown 02/09/20 23:50 Stl Occult Blood (IFOB) Positive (NEGATIVE) A 02/09/20 23:50 Blood Type O POSITIVE 02/07/20 15:50 Plan (1) Acute respiratory failure with hypoxia: Status: Acute (2) Pneumonia due to COVID-19 virus: Status: Acute (3) Hypernatremia: Status: Acute (4) Hypoxia: Status: Acute (5) Acute renal failure: Status: Acute Qualifiers: Acute renal failure type: unspecified Qualified Code(s): N17.9 - Acute kidney failure, unspecified (6) Anemia: Status: Acute Qualifiers: Anemia type: unspecified type Qualified Code(s): D64.9 - Anemia, unspecified (7) Hypokalemia: Status: Acute (8) Hypertension: Status: Acute Qualifiers: Hypertension type: essential hypertension Qualified Code(s): I10 - Essential (primary) hypertension
[2020-02-12] MEDS: APRESOLINE INJ 20 MG VIAL IVP SCH ×2 (12:28→22:00)
[2020-02-12] MEDS: LOPRESSOR INJ 5 MG AMP IVP SCH ×2 (12:28→21:14)
[2020-02-12] MEDS: HALDOL INJ IVP PRN ×2 (23:45)
[2020-02-13] MEDS: D5W + KCL 20 MEQ/L 1,000 ML IV SCH (00:13)
[2020-02-13] MEDS: MORPHINE SULFATE INJ 2 MG INJ IVP PRN ×3 (00:32→19:30)
[2020-02-13] MEDS: HALDOL INJ IVP PRN (06:00)
[2020-02-13 06:24] LABS: CARBON DIOXIDE 27.6 mmol/L (21-32); CREATININE 1.7 mg/dL (0.70-1.30)
[2020-02-13 06:27] LABS: BASOPHILS % (AUTO) 0.2 % (0.2-1.0); HEMATOCRIT 37.5 % (42.0-54.0); HEMOGLOBIN 12.3 g/dL (13.5-18.0); LYMPHOCYTES # (AUTO) 0.1 X10^3/uL (1.3-2.9); LYMPHOCYTES % (AUTO) 0.8 % (21.0-51.0); MEAN CORPUSCULAR HEMOGLOBIN 30.3 pg (27.0-34.0); MEAN CORPUSCULAR HGB CONC 32.8 g/dL (33.0-35.0); MEAN CORPUSCULAR VOLUME 92.4 fL (80.0-100.0); MEAN PLATELET VOLUME 10.4 fL (7.4-11.0); MONOCYTES # (AUTO) 0.4 x10^3/uL (0.3-0.8); MONOCYTES % (AUTO) 2.3 % (0.0-13.0); NEUTROPHILS % (AUTO) 96.7 % (42.0-75.0); PLATELET COUNT 83 X10^3/uL (150.0-450.0); RED BLOOD COUNT 4.06 X10^6/uL (4.7-6.0); RED CELL DISTRIBUTION WIDTH 14.2 % (11.6-16.5); WHITE BLOOD COUNT 19.6 X10^3/uL (3.6-10.0)
[2020-02-13] MEDS: ZOSYN VIAL 3.375 GRAMS 3.375 G in NS 100 ML IV + SPIKE MINIBAG* 100 ML IV SCH (06:31)
[2020-02-13] MEDS: APRESOLINE INJ 20 MG VIAL IVP SCH ×4 (06:33→18:22)
[2020-02-13] MEDS: SOLU-Medrol 125 MG VIAL IVP SCH ×3 (06:33→21:00)
[2020-02-13 07:35] LABS: BAND NEUTROPHILS % 2 % (0-10); PLATELET MORPHOLOGY COMMENT NORMAL (NORMAL)
[2020-02-13] MEDS: VENTOLIN or PROAIR HFA IN SCH ×4 (08:20→21:51)
[2020-02-13] MEDS: LOPRESSOR INJ 5 MG AMP IVP SCH ×2 (09:08→20:28)
[2020-02-13] MEDS: LOVENOX INJ 40 MG SYR SC SCH (09:08)
[2020-02-13] MEDS: PLAQUENIL PO SCH ×2 (09:09→20:37)
[2020-02-13] MEDS: SYNTHROID 125 mcg TAB PO SCH (09:09)
[2020-02-13] MEDS: ZITHROMAX INJ 500 MG VIAL 500 MG in NS 250 ML IV 250 ML IV SCH (09:10)
[2020-02-13 09:32] LABS: ABG BASE EXCESS 5.8 mmol/L (-2.0-2.0); ABG HCO3 29.8 mmol/L (22-26)
[2020-02-13 09:33] LABS: ABG ALLEN TEST POS
--- NOTE | 2020-02-13 11:10 | PCM.PROG ---
Progress Note Progress Note for Day of Date of Exam: 02/13/20 Subjective Subjective: Patient seen at bedside, he has remained on BiPAP with 100% FiO2. Patient is being treated for acute hypoxic respiratory failure due to COVID-19. He completed course of Remdesivir. He received one dose of plasma so far. He is on Azithromax, Zosyn, HCQ and solumedrol. Patient is on Bipap during my exam and resting comfortably. Labs: WBC: 19.6 Hgb 12.3 K: 2.9 Na: 158 Cl:120 Cr: 1.70 CRP trending down AB.48/40//29 Plan: due to worsening HyperNa, will switch to Cefepime to reduce salt load from Zosyn, continue HCQ and solumedrol. Completed course of Zithromax. Another unit of plasma ordered yesterday, pending today. RT will decrease FiO2 to 90% and see how patient tolerates it. Repeat CXR pending. Continue IVF at 75cc/hr, will switch to D5 with 40 meQ KCl. Unclear if patient received fluids at this rate yesterday even though that's how it was ordered. Discussed this with RN. Monitor AM labs. Past Medical Family Social History Past Med/Fam/Surg Hx: Changes noted (describe) Allergies: Allergies No Known Drug Allergies Allergy (Verified 02/05/20 21:40) Review of Systems ROS: Changes notes (describe) Vital Signs and I&O's Vital Signs: Temperature 98.8 F Pulse Rate [Left] 59 Pulse Rate 72 Respiratory Rate 20 Blood Pressure [Left Arm] 184/79 Blood Pressure 170/77 O2 Sat by Pulse Oximetry 100 Intake and Output: Intake & Output 02/10/20 02/11/20 02/12/20 02/13/20 23:59 23:59 23:59 23:59 Intake Total 2015 1172 / 1172 750 / 750 550 / 550 Output Total 2625 / 2625 1250 / 1250 1050 / 1050 200 / 200 Balance -609 / -609 -78 / -78 -300 / -300 350 / 350 Physical Exam Oriented: Unable to test Eyes: Normal Nose: Normal Throat: Other (On Bipap ) Respiratory: Generalized, Diminished and Rhonchi Cardiovascular: Tachycardia; negative Edema Auscultation: Bowel Sounds: Normal Tenderness: Normal Skin: Decreased Turgur Musculoskeletal: Normal Psychiatric: Normal Mood Description: Calm Affect: Normal Speech Pattern: Artificially Ventilated (on Bipap ) Laboratory and Diagnostics Result Diagrams: 02/13/20 05:15 02/13/20 05:15 Labs: 02/09/20 23:50 Stool Stool Culture - Final 02/09/20 23:50 Stool - Final Laboratory WBC 19.6 X10^3/uL (3.6-10.0) H 02/13/20 05:15 RBC 4.06 X10^6/uL (4.7-6.0) L 02/13/20 05:15 Hgb 12.3 g/dL (13.5-18.0) L 02/13/20 05:15 Hct 37.5 % (42.0-54.0) L 02/13/20 05:15 MCV 92.4 fL (80.0-100.0) 02/13/20 05:15 MCH 30.3 pg (27.0-34.0) 02/13/20 05:15 MCHC 32.8 g/dL (33.0-35.0) L 02/13/20 05:15 RDW 14.2 % (11.6-16.5) 02/13/20 05:15 Plt Count 83 X10^3/uL (150.0-450.0) L 02/13/20 05:15 Plt Count Comment Decreased (ADEQUATE) 02/13/20 05:15 MPV 10.4 fL (7.4-11.0) 02/13/20 05:15 Neut % (Auto) 96.7 % (42.0-75.0) H 02/13/20 05:15 Lymph % (Auto) 0.8 % (21.0-51.0) L 02/13/20 05:15 [place] % (Auto) 2.3 % (0.0-13.0) 02/13/20 05:15 Eos % (Auto) 0.0 % (0.9-2.9) L 02/13/20 05:15 Baso % (Auto) 0.2 % (0.2-1.0) 02/13/20 05:15 Neut # (Auto) 19.0 x10^3/uL (2.2-4.8) H 02/13/20 05:15 Lymph # (Auto) 0.1 X10^3/uL (1.3-2.9) L 02/13/20 05:15 [place] # (Auto) 0.4 x10^3/uL (0.3-0.8) 02/13/20 05:15 Eos # (Auto) 0.0 x10^3/uL (0.0-0.2) 02/13/20 05:15 Baso # (Auto) 0.0 X10^3/uL (0.0-0.1) 02/13/20 05:15 Absolute Nucleated RBC 0.0 /100WBC 02/13/20 05:15 Total Counted 100 02/13/20 05:15 Neutrophils % (Manual) 95 % (39-76) H 02/13/20 05:15 Band Neutrophils % 2 % (0-10) 02/13/20 05:15 Lymphocytes % (Manual) 1 % (13-43) L 02/13/20 05:15 Monocytes % (Manual) 2 % (4-9) L 02/13/20 05:15 Plt Morphology Comment Normal (NORMAL) 02/13/20 05:15 RBC Morphology Normal (NORMAL) 02/13/20 05:15 Sample Site Left radial 02/13/20 09:22 ABG pH 7.480 (7.35-7.45) H 02/13/20 09:22 ABG pCO2 40.0 mmHg (35.0-45.0) 02/13/20 09:22 ABG pO2 103.0 mmHg (80.0-100.0) H 02/13/20 09:22 ABG HCO3 29.8 mmol/L (22-26) H 02/13/20 09:22 ABG O2 Saturation 98.0 % (90-100) 02/13/20 09:22 ABG Base Excess 5.8 mmol/L (-2.0-2.0) H 02/13/20 09:22 Ezra Test Pos 02/13/20 09:22 A-a Gradient 560.0 mmHg 02/13/20 09:22 FiO2 100.0 02/13/20 09:22 Blood Gas Comments Oriana well aw 02/13/20 09:22 Sodium 158 mmol/L (136-145) H* 02/13/20 05:15 Corrected Sodium 161 mmol/L (136-145) H 02/13/20 05:15 Potassium 2.9 mmol/L (3.5-5.1) L* 02/13/20 05:15 Chloride 120 mmol/L (98-107) H* 02/13/20 05:15 Carbon Dioxide 27.6 mmol/L (21-32) 02/13/20 05:15 BUN 48 mg/dL (7-18) H 02/13/20 05:15 Creatinine 1.70 mg/dL (0.70-1.30) H 02/13/20 05:15 Est GFR (MDRD) Af Amer 50 (>60) L 02/13/20 05:15 Est GFR (MDRD) Non-Af 41 (>60) L 02/13/20 05:15 Glucose 205 mg/dL (65-99) H 02/13/20 05:15 Calcium 8.0 mg/dL (8.5-10.1) L 02/13/20 05:15 Corrected Calcium 9.3 mg/dL (8.5-10.1) 02/12/20 05:05 Magnesium 2.8 mg/dL (1.7-2.9) 02/12/20 05:05 Ferritin 1439 ng/mL (26-388) H 02/05/20 19:10 Total Bilirubin 1.00 mg/dL (0.2-1.0) 02/12/20 05:05 AST 34 Units/L (15-37) 02/12/20 05:05 ALT 30 Units/L (12-78) 02/12/20 05:05 Alkaline Phosphatase 90 Units/L (46-116) 02/12/20 05:05 C-Reactive Protein 63.00 mg/L (0-3.0) H 02/13/20 05:15 Total Protein 5.8 g/dL (6.4-8.2) L 02/12/20 05:05 Albumin 2.4 g/dL (3.4-5.0) L 02/12/20 05:05 Globulin 3.4 g/dL (2.5-4.5) 02/12/20 05:05 Albumin/Globulin Ratio 0.7 Ratio (1.1-2.1) L 02/12/20 05:05 Stool Description 30 g. liquid/brown 02/09/20 23:50 Stl Occult Blood (IFOB) Positive (NEGATIVE) A 02/09/20 23:50 Blood Type O POSITIVE 02/07/20 15:50 Plan (1) Acute respiratory failure with hypoxia: Status: Acute (2) Pneumonia due to COVID-19 virus: Status: Acute Plan: ADMIT ICU, ISOLATION SUPPLEMENTAL O2, RESP THERAPY, ABG ON ADMISSION CXR ON ADMISSION, CE AND EKG IV ATBX, REMDESIVIR, VERIFY HOME MEDICATION OBTAIN COPY OF COVID RESULTS (3) Hypernatremia: Status: Acute (4) Hypoxia: Status: Acute (5) Acute renal failure: Status: Acute Qualifiers: Acute renal failure type: unspecified Qualified Code(s): N17.9 - Acute kidney failure, unspecified (6) Anemia: Status: Acute Qualifiers: Anemia type: unspecified type Qualified Code(s): D64.9 - Anemia, unspecified (7) Hypokalemia: Status: Acute (8) Hypertension: Status: Acute Qualifiers: Hypertension type: essential hypertension Qualified Code(s): I10 - Essential (primary) hypertension
[2020-02-13] MEDS ORDERED: D5W 1000 ML IV 1,000 ML with POTASSIUM CHLORIDE INJ 40 MEQ VIAL 40 MEQ IV SCH ×2 (12:00)
[2020-02-13] MEDS: MAXIPIME VIAL 1 GRAM 1 G in NS 50 ML IV + SPIKE MINIBAG* 50 ML IV SCH ×2 (13:11→13:12)
[2020-02-13] MEDS ORDERED: D5W 1000 ML IV 1,000 ML with POTASSIUM CHLORIDE INJ 20 MEQ VIAL 20 MEQ IV SCH ×2 (19:00)
[2020-02-13] MEDS: K-RIDER 10 MEQ/NS 100 ML 10 MEQ/100 ML BAG IV PRN (20:00)
[2020-02-13] MEDS ORDERED: LOPRESSOR INJ 5 MG AMP ONE (20:47)
[2020-02-13] MEDS ORDERED: LOPRESSOR INJ 5 MG AMP IVP ONE (20:48)
[2020-02-13 21:23] LABS: CARBON DIOXIDE 24.2 mmol/L (21-32); CREATININE 1.95 mg/dL (0.70-1.30)
[2020-02-13 21:27] LABS: ALBUMIN 2.3 g/dL (3.4-5.0); COR CA(FOR HYPOALB) 9.4 mg/dL (8.5-10.1); MAGNESIUM 3.1 mg/dL (1.7-2.9)
[2020-02-13 21:40] LABS: CKMB % 0.8 % (<4); CREATINE KINASE MB 3.2 ng/mL (0-4.0); TROPONIN I 1.47 ng/mL (0-1.5)
[2020-02-13 21:55] LABS: BASOPHILS # (AUTO) 0.1 X10^3/uL (0.0-0.1); BASOPHILS % (AUTO) 0.3 % (0.2-1.0); HEMATOCRIT 39.6 % (42.0-54.0); HEMOGLOBIN 13.1 g/dL (13.5-18.0); LYMPHOCYTES # (AUTO) 0.2 X10^3/uL (1.3-2.9); LYMPHOCYTES % (AUTO) 0.7 % (21.0-51.0); MEAN CORPUSCULAR HEMOGLOBIN 30.3 pg (27.0-34.0); MEAN CORPUSCULAR HGB CONC 33.1 g/dL (33.0-35.0); MEAN CORPUSCULAR VOLUME 91.7 fL (80.0-100.0); MEAN PLATELET VOLUME 10.4 fL (7.4-11.0); MONOCYTES # (AUTO) 0.6 x10^3/uL (0.3-0.8); MONOCYTES % (AUTO) 2.3 % (0.0-13.0); NEUTROPHILS # (AUTO) 25.8 x10^3/uL (2.2-4.8); NEUTROPHILS % (AUTO) 96.7 % (42.0-75.0); PLATELET COUNT 92 X10^3/uL (150.0-450.0); RED BLOOD COUNT 4.32 X10^6/uL (4.7-6.0); RED CELL DISTRIBUTION WIDTH 14.2 % (11.6-16.5); WHITE BLOOD COUNT 26.7 X10^3/uL (3.6-10.0)
[2020-02-13] MEDS ORDERED: CARDIZEM INJ 125 MG VIAL 125 MG in NS 100 ML IV 100 ML IV PRN ×2 (21:57→21:58)
[2020-02-13] MEDS ORDERED: CARDIZEM INJ 50 MG VIAL IVP ONE ×2 (21:58→22:30)
[2020-02-13] MEDS ORDERED: HEPARIN SODIUM IN D5W 25,000 UNITS/500 ML BAG IV PRN ×2 (21:59→22:01)
[2020-02-13] MEDS ORDERED: HEPARIN SODIUM INJ 5000 UNITS IVP ONE (22:02)
[2020-02-13 22:10] LABS: GIANT PLATELET FEW; PLATELET MORPHOLOGY COMMENT ABNORMAL (NORMAL)
[2020-02-13] MEDS ORDERED: HEPARIN SODIUM INJ 5000 UNITS ONE (22:15)
[2020-02-13] MEDS ORDERED: CARDIZEM INJ 50 MG VIAL ONE ×2 (22:17→22:46)
[2020-02-13] MEDS ORDERED: CARDIZEM INJ 125 MG VIAL ONE (22:18)
[2020-02-13] MEDS ORDERED: NS 100 ML IV 100 ML IV ONE (22:21)
[2020-02-14] MEDS: MAXIPIME VIAL 1 GRAM 1 G in NS 50 ML IV + SPIKE MINIBAG* 50 ML IV SCH (00:05)
[2020-02-14] MEDS: MORPHINE SULFATE INJ 2 MG INJ IVP PRN ×2 (00:44→04:30)
[2020-02-14 01:42] LABS: CKMB % 2.5 % (<4)
[2020-02-14 01:48] LABS: CREATINE KINASE MB 14.1 ng/mL (0-4.0); TROPONIN I 3.55 ng/mL (0-1.5)
[2020-02-14 04:04] VITALS: BP 153/72
[2020-02-14] MEDS: APRESOLINE INJ 20 MG VIAL IVP SCH (04:11)
--- NOTE | 2020-02-15 06:00 | RAD ---
HISTORYHypoxia, COVID-19STUDYChest AP [id number] heart is mildly enlarged. The essie are normal. Diffuse bilateral interstitial and some ground-glass infiltrates are somewhat improved when compared to the prior examination even considering a difference in film technique. No pleural effusions are identified. Bony thorax is unremarkable.IMPRESSIONSome improvement in the bilateral interstitial and ground-glass infiltrates being followedElectronically signed by: HAKAN ERICKSON (Feb 15, 2020 05:59:19)
--- NOTE | 2020-02-21 14:43 | W.DIS.FURT ---
Summary of Discharge Discharge Summary of Date Date of Exam: 02/14/20 Admission Date Date of Admission: 02/05/20 Admission Diagnosis Hospital Course: Mr. Lama is a 80 y/o male with a PMH of HTN and hypothyrodism was admitted with acute respiratory failure with hypoxia due to COVID-19 infection. Patient was started on COVID 19 protocol along with IV abx, Remdesvir, steroids and albuterol. He also received one dose of plasma treatment. Patient continued to require more oxygen and intubation was discussed with family but they decided to do medical treatment with non-invasive ventillation. Patient was placed on Bipap and was not able to tolerate it off even for meals. His code status was changed to DNR as per patient/family wishes. Overnight, patient went into atrial fibrillation with RVR and was placed on Cardizem drip. Patient also had elevated troponin so it was decided to transfer patient to [facility] for further management. Patient's family changed code status to full code. Patient was transferred on BiPAP and respiratory status was stable. Labs: Laboratory Last Values WBC 26.7 X10^3/uL (3.6-10.0) H 02/13/20 21:42 RBC 4.32 X10^6/uL (4.7-6.0) L 02/13/20 21:42 Hgb 13.1 g/dL (13.5-18.0) L 02/13/20 21:42 Hct 39.6 % (42.0-54.0) L 02/13/20 21:42 MCV 91.7 fL (80.0-100.0) 02/13/20 21:42 MCH 30.3 pg (27.0-34.0) 02/13/20 21:42 MCHC 33.1 g/dL (33.0-35.0) 02/13/20 21:42 RDW 14.2 % (11.6-16.5) 02/13/20 21:42 Plt Count 92 X10^3/uL (150.0-450.0) L 02/13/20 21:42 Plt Count Cancelled 02/13/20 21:42 Plt Count Comment Decreased (ADEQUATE) 02/13/20 21:42 MPV 10.4 fL (7.4-11.0) 02/13/20 21:42 Neut % (Auto) 96.7 % (42.0-75.0) H 02/13/20 21:42 Lymph % (Auto) 0.7 % (21.0-51.0) L 02/13/20 21:42 [place] % (Auto) 2.3 % (0.0-13.0) 02/13/20 21:42 Eos % (Auto) 0.0 % (0.9-2.9) L 02/13/20 21:42 Baso % (Auto) 0.3 % (0.2-1.0) 02/13/20 21:42 Neut # (Auto) 25.8 x10^3/uL (2.2-4.8) H 02/13/20 21:42 Lymph # (Auto) 0.2 X10^3/uL (1.3-2.9) L 02/13/20 21:42 [place] # (Auto) 0.6 x10^3/uL (0.3-0.8) 02/13/20 21:42 Eos # (Auto) 0.0 x10^3/uL (0.0-0.2) 02/13/20 21:42 Baso # (Auto) 0.1 X10^3/uL (0.0-0.1) 02/13/20 21:42 Absolute Nucleated RBC 0.0 /100WBC 02/13/20 21:42 Total Counted 100 02/13/20 21:42 Neutrophils % (Manual) 98 % (39-76) H 02/13/20 21:42 Band Neutrophils % 2 % (0-10) 02/13/20 05:15 Lymphocytes % (Manual) 1 % (13-43) L 02/13/20 21:42 Monocytes % (Manual) 1 % (4-9) L 02/13/20 21:42 Giant Platelets Few 02/13/20 21:42 Plt Morphology Comment Abnormal (NORMAL) 02/13/20 21:42 RBC Morphology Normal (NORMAL) 02/13/20 21:42 PT 18.7 SECONDS (11.8-14.3) 02/13/20 21:42 INR Target Range - 02/13/20 21:42 INR 1.62 (0.8-1.3) H 02/13/20 21:42 APTT 27.5 SECONDS (22.9-36.5) 02/13/20 21:42 PTT Comment - 02/13/20 21:42 Sample Site Left radial 02/13/20 09:22 ABG pH 7.480 (7.35-7.45) H 02/13/20 09:22 ABG pCO2 40.0 mmHg (35.0-45.0) 02/13/20 09:22 ABG pO2 103.0 mmHg (80.0-100.0) H 02/13/20 09:22 ABG HCO3 29.8 mmol/L (22-26) H 02/13/20 09:22 ABG O2 Saturation 98.0 % (90-100) 02/13/20 09: ABG Base Excess 5.8 mmol/L (-2.0-2.0) H 02/13/20 09:22 Ezra Test Pos 02/13/20 09:22 A-a Gradient 560.0 mmHg 02/13/20 09:22 FiO2 100.0 02/13/20 09:22 Blood Gas Comments Oriana well aw 02/13/20 09:22 Sodium 159 mmol/L (136-145) H* 02/13/20 21:05 Corrected Sodium 161 mmol/L (136-145) H 02/13/20 21:05 Potassium 3.2 mmol/L (3.5-5.1) L 02/13/20 21:05 Chloride 121 mmol/L (98-107) H* 02/13/20 21:05 Carbon Dioxide 24.2 mmol/L (21-32) 02/13/20 21:05 BUN 54 mg/dL (7-18) H 02/13/20 21:05 Creatinine 1.95 mg/dL (0.70-1.30) H 02/13/20 21:05 Est GFR (MDRD) Af Amer 43 (>60) L 02/13/20 21:05 Est GFR (MDRD) Non-Af 35 (>60) L 02/13/20 21:05 Glucose 204 mg/dL (65-99) H 02/13/20 21:05 Calcium 8.0 mg/dL (8.5-10.1) L 02/13/20 21:05 Corrected Calcium 9.4 mg/dL (8.5-10.1) 02/13/20 21:05 Magnesium 3.1 mg/dL (1.7-2.9) H 02/13/20 21:05 Ferritin 1439 ng/mL (26-388) H 02/05/20 19:10 Total Bilirubin 0.80 mg/dL (0.2-1.0) 02/13/20 21:05 AST 39 Units/L (15-37) H 02/13/20 21:05 ALT 38 Units/L (12-78) 02/13/20 21:05 Alkaline Phosphatase 78 Units/L (46-116) 02/13/20 21:05 Creatine Kinase 565 Units/L (39-308) H 02/14/20 01:00 CK-MB (CK-2) 14.1 ng/mL (0-4.0) H* 02/14/20 01:00 CK/CKMB % Calc 2.5 % (<4) 02/14/20 01:00 Troponin I 3.55 ng/mL (0-1.5) H* 02/14/20 01:00 C-Reactive Protein 63.00 mg/L (0-3.0) H 02/13/20 05:15 Total Protein 6.0 g/dL (6.4-8.2) L 02/13/20 21:05 Albumin 2.3 g/dL (3.4-5.0) L 02/13/20 21:05 Globulin 3.7 g/dL (2.5-4.5) 02/13/20 21:05 Albumin/Globulin Ratio 0.6 Ratio (1.1-2.1) L 02/13/20 21:05 Stool Description 30 g. liquid/brown 02/09/20 23:50 Stl Occult Blood (IFOB) Positive (NEGATIVE) A 02/09/20 23:50 Blood Type O POSITIVE 02/07/20 15:50 Reason For Visit: COVID-19 PNEUMONIA,HYPOXIA,SHORTNESS OF BREATH,HTN Discharge Date Discharge Date: 02/14/20 Discharge Diagnosis All Active Problems (Updated 02/21/20 @ 14:43 by Roseann Berry) Atrial fibrillation with rapid ventricular response (Acute) Elevated troponin (Acute) Hypokalemia (Acute) Anemia (Acute) Acute respiratory failure with hypoxia (Acute) Hypernatremia (Acute) Acute renal failure (Acute) COVID-19 (Acute) Pneumonia due to COVID-19 virus (Acute) Hypoxia (Acute) Abnormal renal function (Acute) Shortness of breath (Acute) Hypertension (Acute) Plan of Treatment: Continue with present treatment and follow up plan. Pt is to keep follow up appointment as instructed and take medications as ordered. Discharge Medications Discharge Medications: No Known Drug Allergies Allergy (Verified 02/05/20 21:40) CONTINUE taking the following medications albuterol sulfate [Ventolin HFA] 2 puff INHALATION Q4H 02/05/20 [History] azithromycin 250 mg PO DAILY 02/05/20 [History] cefdinir 300 mg PO BID 02/05/20 [History] dexamethasone 4 mg PO DAILY 02/05/20 [History] hydralazine 25 mg PO TID 02/05/20 [History] hydroxychloroquine 200 mg PO BID 02/05/20 [History] levothyroxine 125 mcg PO DAILY 02/05/20 [History] losartan 50 mg PO BID 02/05/20 [History] metoprolol tartrate 25 mg PO BID 02/05/20 [History] Discharge Disposition Discharge Disposition: [facility] Discharge Condition: Guarded
== END 2020-02-14 04:55 | disposition short-term general hospital (02) | DRG 177 ==
LOC: ER 18:14 → ICU 20:44 → MED/SURG 20:45 → ICU 02-06 13:23
PROVIDERS: ADMIT Internal Medicine; ATTEND Internal Medicine
DX: N17.8 Other acute kidney failure; R26.89 Other abnormalities of gait and mobility; E87.0 Hyperosmolality and hypernatremia; D64.9 Anemia, unspecified; U07.1 COVID-19; Z66 Do not resuscitate; I10 Essential (primary) hypertension; R13.19 Other dysphagia; E87.6 Hypokalemia; I48.91 Unspecified atrial fibrillation; J12.89 Other viral pneumonia; I21.9 Acute myocardial infarction, unspecified; J96.01 Acute respiratory failure with hypoxia